=== PATIENT | male | born 1955 | race Caucasian/White ===

== ENCOUNTER → 2018-04-11 | Outpatient (CLI) | payer MEDICARE, BC ==
[~2018-04-11] MED LIST: CYMBALTA60 MG PO; VICTOZA0.6 MG/0.1 SQ; XANAX0.5 MG PO
== END | disposition home or self-care (01) ==
LOC: CDC 08:16
DX: Z79.891 Long term (current) use of opiate analgesic (principal)
CPT/HCPCS: 93000